=== PATIENT | female | born 1985 | race Caucasian/White ===

== ENCOUNTER 2018-04-29 10:51 | Emergency (ER) | payer OTHER, SELFPAY ==
--- NOTE | 2018-04-29 12:28 | EDPHYS ---
Physician Documentation [facility] Name: Mandy Boyd Age: 32 yrs Sex: Female : 1985 Arrival Date: 04/29/2018 Time: 10:53 Bed 16 Private MD: None, None ED Physician Jimy Valdez HPI: 04/29 14:00 This 32 yrs old Female presents to ER via Ambulatory with complaints of Flu snw Symptoms. 14:00 Onset: The symptoms/episode began/occurred suddenly, yesterday. Associated signs and snw symptoms: Pertinent positives: abdominal pain, sore throat. The patient has not experienced similar symptoms in the past. The patient has not recently seen a physician. 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 - Social history:: Smoking status: Patient/guardian denies using tobacco. - Ebola Screening: : Patient denies travel to an Ebola-affected area in the 21 days before illness onset. ROS: 13:58 Eyes: Negative for injury, pain, redness, and discharge, Neck: Negative for injury, snw pain, and swelling, Cardiovascular: Negative for chest pain, palpitations, and edema, Respiratory: Negative for shortness of breath, cough, wheezing, and pleuritic chest pain, Back: Negative for injury and pain, : Negative for injury, bleeding, discharge, and swelling, MS/Extremity: Negative for injury and deformity, Skin: Negative for injury, rash, and discoloration, Neuro: Negative for headache, weakness, numbness, tingling, and seizure. 13:58 Constitutional: Positive for body aches, malaise, poor PO intake. 13:58 ENT: Positive for sore throat. 13:58 Abdomen/GI: Positive for vomiting, x 1. Exam: 13:57 Constitutional: This is a well developed, well nourished patient who is awake, alert, snw and in no acute distress. Head/Face: Normocephalic, atraumatic. Eyes: Pupils equal round and reactive to light, extra-ocular motions intact. Lids and lashes normal. Conjunctiva and sclera are non-icteric and not injected. Cornea within normal limits. Periorbital areas with no swelling, redness, or edema. Neck: Trachea midline, no thyromegaly or masses palpated, and no cervical lymphadenopathy. Supple, full range of motion without nuchal rigidity, or vertebral point tenderness. No Meningismus. Chest/axilla: Normal chest wall appearance and motion. Nontender with no deformity. No lesions are appreciated. Cardiovascular: Regular rate and rhythm with a normal S1 and S2. No gallops, murmurs, or rubs. Normal PMI, no JVD. No pulse deficits. Respiratory: Lungs have equal breath sounds bilaterally, clear to auscultation and percussion. No rales, rhonchi or wheezes noted. No increased work of breathing, no retractions or nasal flaring. Abdomen/GI: Soft, non-tender, with normal bowel sounds. No distension or tympany. No guarding or rebound. No evidence of tenderness throughout. Back: No spinal tenderness. No costovertebral tenderness. Full range of motion. Skin: Warm, dry with normal turgor. Normal color with no rashes, no lesions, and no evidence of cellulitis. MS/ Extremity: Pulses equal, no cyanosis. Neurovascular intact. Full, normal range of motion. Neuro: Awake and alert, GCS 15, oriented to person, place, time, and situation. Cranial nerves II-XII grossly intact. Motor strength 5/5 in all extremities. Sensory grossly intact. Cerebellar exam normal. Normal gait. 13:57 ENT: External ear(s): are unremarkable, Ear canal(s): are normal, TM's: erythema, that is mild, that is moderate, on the left, Nose: is normal, Mouth: is normal, Posterior pharynx: is normal, Voice: is normal. Vital Signs: 11:33 BP 110 / 85; Pulse 63; Resp 18; Temp 98.4(O); Pulse Ox 98% on R/A; Weight 89.36 kg; aj1 Height 5 ft. 1 in. (154.94 cm); Pain 5/10; 11:33 Body Mass Index 37.22 (89.36 kg, 154.94 cm) aj1 MDM: 11:51 Patient medically screened. snw 13:59 Data reviewed: vital signs, nurses notes. Data interpreted: Pulse oximetry: on room air snw is 98 %. Interpretation: normal. Counseling: I had a detailed discussion with the patient and/or guardian regarding: the historical points, exam findings, and any diagnostic results supporting the discharge/admit diagnosis, the presence of at least one elevated blood pressure reading (>120/80) during this emergency department visit, lab results, the need for outpatient follow up, to return to the emergency department if symptoms worsen or persist or if there are any questions or concerns that arise at home. Special discussion: Based on the patient's Hx, exam, and Dx evaluation, there is no indication for emergent surgery or inpatient Tx. It is understood by the patient/guardian that if the Sx's persist or worsen they need to return immediately for re-evaluation. I have referred the patient to see his PCP for further evaluation of high blood pressure. Based on the history and exam findings, there is no indication for further emergent testing or inpatient evaluation. I discussed with the patient/guardian the need to see the primary care provider for further evaluation of the symptoms. 14:07 ED course: pt took 4-5 days of antibiotic she had at home (amoxil). snw Administered Medications: No medications were administered Disposition: 14:34 Co-signature as Attending Physician, Jimy Valdez MD. rn Disposition: 04/29/18 12:27 Discharged to Home. Impression: Bronchitis, not specified as acute or chronic. - Condition is Stable. - Discharge Instructions: Acute Bronchitis. - Prescriptions for Amoxicillin 500 mg Oral Capsule - take 1 capsule by ORAL route every 8 hours for 10 days; 30 tablet. Zyrtec 10 mg Oral Tablet - take 1 tablet by ORAL route once daily As needed; 20 tablet. - Medication Reconciliation Form, Thank You Letter, Antibiotic Education, Prescription Opioid Use form. - Follow up: Private Physician; When: 1 week; Reason: Recheck today's complaints, Continuance of care, Re-evaluation by your physician. Signatures: Pretty Thompson RN RN aj1 Meghann Braswell, EMAIL PRODUCTION CONSULTANT-C EMAIL PRODUCTION CONSULTANT-Csnw Jimy Valdez MD MD rn Smirch, Shelby, RN RN ss Corrections: (The following items were deleted from the chart) 12:39 12:27 04/29/2018 12:27 Discharged to Home. Impression: Bronchitis, not specified as ss acute or chronic. Condition is Stable. Discharge Instructions: Acute Bronchitis. Prescriptions for Amoxicillin 500 mg Oral Capsule - take 1 capsule by ORAL route every 8 hours for 10 days; 30 tablet, Zyrtec 10 mg Oral Tablet - take 1 tablet by ORAL route once daily As needed; 20 tablet. and Forms are Medication Reconciliation Form, Thank You Letter, Antibiotic Education, Prescription Opioid Use. Follow up: Private Physician; When: 1 week; Reason: Recheck today's complaints, Continuance of care, Re-evaluation by your physician. snw 14:12 13:58 Abdomen/GI: Positive for abdominal cramps, of the right lower quadrant and left snw lower quadrant, snw
--- NOTE | 2018-04-29 12:28 | ER ---
Nurse's Notes [facility] Name: Mandy Boyd Age: 32 yrs Sex: Female : 1985 Arrival Date: 04/29/2018 Time: 10:53 Bed 16 Private MD: None, None Diagnosis: Bronchitis, not specified as acute or chronic Presentation: 04/29 11:27 Presenting complaint: Patient states: "I threw up on my way in here. I've been sick for aj1 the past week. I have chest congestions and cough. I have some antibiotics for it, so mine is starting to clear up, but I cough a lot a night, and I might be .". Transition of care: patient was not received from another setting of care. Onset of symptoms was April 22, 2018. Risk Assessment: Do you want to hurt yourself or someone else? Patient reports no desire to harm self or others. Initial Sepsis Screen: Does the patient meet any 2 criteria? No. Patient's initial sepsis screen is negative. Does the patient have a suspected source of infection? No. Patient's initial sepsis screen is negative. Care prior to arrival: None. 11:27 Method Of Arrival: Ambulatory aj1 11:27 Acuity: ERIKA 4 aj1 Triage Assessment: 11:33 General: Appears in no apparent distress. comfortable, Behavior is calm, cooperative, aj1 appropriate for age. Pain: Complains of pain in left aspect of posterior pharynx and right aspect of posterior pharynx Pain currently is 5 out of 10 on a pain scale. 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 - Social history:: Smoking status: Patient/guardian denies using tobacco. - Ebola Screening: : Patient denies travel to an Ebola-affected area in the 21 days before illness onset. Screenin:40 Abuse screen: Denies threats or abuse. Nutritional screening: No deficits noted. rb1 Tuberculosis screening: No symptoms or risk factors identified. Fall Risk None identified. Assessment: 11:40 General: Appears in no apparent distress. comfortable, Behavior is calm, cooperative. rb1 Neuro: Level of Consciousness is awake, alert, obeys commands, Oriented to person, place, time, situation. Cardiovascular: Capillary refill < 3 seconds is brisk in bilateral fingers. Respiratory: Reports cough that is productive, Airway is patent Respiratory effort is even, unlabored, Respiratory pattern is regular, symmetrical. GI: Reports nausea, vomiting. : No signs and/or symptoms were reported regarding the genitourinary system. Derm: Skin is pink, warm \\T\\ dry. Musculoskeletal: Range of motion: intact in all extremities. Vital Signs: 11:33 BP 110 / 85; Pulse 63; Resp 18; Temp 98.4(O); Pulse Ox 98% on R/A; Weight 89.36 kg; aj1 Height 5 ft. 1 in. (154.94 cm); Pain 5/10; 11:33 Body Mass Index 37.22 (89.36 kg, 154.94 cm) aj1 ED Course: 10:53 Patient arrived in ED. sb2 10:54 None, None is Private Physician. sb2 11:04 Meghann Braswell FNP-C [facility]. snw 11:04 Jimy Valdez MD is Attending Physician. snw 11:30 Triage completed. aj1 11:33 Arm band placed on. aj1 11:40 Kymberly Gomez, RN is Primary Nurse. rb1 11:40 Patient has correct armband on for positive identification. Bed in low position. Call rb1 light in reach. Side rails up X2. Pulse ox on. NIBP on. 12:38 No provider procedures requiring assistance completed. Patient did not have IV access ss during this emergency room visit. Administered Medications: No medications were administered Outcome: 12:27 Discharge ordered by . snw 12:38 Discharged to home ambulatory, with family. ss 12:38 Condition: good 12:38 Discharge instructions given to patient, family, Instructed on discharge instructions, follow up and referral plans. medication usage, Demonstrated understanding of instructions, follow-up care, medications, Prescriptions given X 2. 12:39 Patient left the ED. Signatures: Pretty Thompson RN RN aj1 Meghann Braswell, [address] SQL DEVELOPER-C [address] SQL DEVELOPER-Csnw Skyla Olson RN RN ss Kymberly Gomez RN RN rb1 Judith Adhikari2
== END 2018-04-29 12:39 | disposition home or self-care (01) ==
LOC: ER 10:51
DX: J40 Bronchitis, not specified as acute or chronic (principal); R56.9 Unspecified convulsions; I10 Essential (primary) hypertension; J45.909 Unspecified asthma, uncomplicated
CPT/HCPCS: 99283

== ENCOUNTER 2018-05-24 14:38 | Emergency (ER) | payer SELFPAY ==
[2018-05-24] MEDS ORDERED: NA CHLORIDE 0.9% 1,000 ML ONE (15:04)
[2018-05-24] MEDS ORDERED: ONDANSETRON 4 MG/2 ML VIAL ONE (15:04)
[2018-05-24] MEDS ORDERED: LORazepam 2 MG/ML VIAL ONE (15:06)
[2018-05-24 15:59] LABS: Absolute Lymphocytes (CBC) 1.5 K/uL (0.7-4.9); Absolute Monocytes 0.5 K/uL (0.1-1.3); Absolute Neutrophil 5.9 K/uL (1.8-8.0); Basophils % 0.3 % (0-1.3); Eosinophils % 1.5 % (0-4.4); Hematocrit 35.6 % (36.0-45.0); Lymphocytes % 18.2 % (15.3-44.8); MCH 28.5 pg (27.0-35.0); MCV 85.4 fL (80-100); MPV 9.5 fL (7.6-11.3); Monocytes % 5.9 % (3.3-12.3); RBC Red Blood Cell Count 4.18 M/uL (3.86-4.86)
[2018-05-24 16:05] LABS: Urine Blood TRACE (NEG); Urine Glucose NEGATIVE (NEG); Urine Protein 3+ (NEG); Urine Specific Gravity >1.030 (1.005-1.030)
[2018-05-24 16:12] LABS: Albumin 3.4 g/dL (3.4-5.0); Bilirubin Total 0.2 mg/dL (0.2-1.0); Potassium 3.8 mmol/L (3.5-5.1); Protein, Total 7.2 g/dL (6.4-8.2)
--- NOTE | 2018-05-24 16:52 | ER ---
Nurse's Notes [facility] Name: Mandy Boyd Age: 32 yrs Sex: Female : 1985 Arrival Date: 05/24/2018 Time: 14:43 Bed 24 Private MD: Diagnosis: Epilepsy and recurrent seizures;Patient's noncompliance with medical treatment and regimen Presentation: 05/24 14:44 Presenting complaint: EMS states: seizure activity lasted about 30 seconds at work with tl3 a postictal phase of about 5-7 minutes. Transition of care: patient was not received from another setting of care. Onset of symptoms was May 24, 2018. Risk Assessment: Do you want to hurt yourself or someone else? Patient reports no desire to harm self or others. Initial Sepsis Screen: Does the patient meet any 2 criteria? No. Patient's initial sepsis screen is negative. Does the patient have a suspected source of infection? No. Patient's initial sepsis screen is negative. Care prior to arrival: None. 14:44 Method Of Arrival: EMS: [facility] tl3 14:44 Acuity: ERIKA 3 tl3 Triage Assessment: 14:47 General: Appears distressed, uncomfortable, well groomed, well developed, well tl3 nourished, Behavior is cooperative, appropriate for age, anxious. Pain: Denies pain. EENT: No signs and/or symptoms were reported regarding the EENT system. Neuro: Level of Consciousness is awake, alert, obeys commands, Oriented to person, place, time, situation, Appropriate for age. Cardiovascular: Patient's skin is warm and dry. Respiratory: Airway is patent Respiratory effort is even, unlabored, Respiratory pattern is regular, symmetrical. GI: No signs and/or symptoms were reported involving the gastrointestinal system. : No signs and/or symptoms were reported regarding the genitourinary system. Derm: No signs and/or symptoms reported regarding the dermatologic system. Musculoskeletal: No signs and/or symptoms reported regarding the musculoskeletal system. 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 - Social history:: Smoking status: unknown. - Ebola Screening: : No symptoms or risks identified at this time. - Family history:: not pertinent. - Hospitalizations: : No recent hospitalization is reported. Screenin:52 Abuse screen: Denies threats or abuse. Nutritional screening: No deficits noted. tl3 Tuberculosis screening: No symptoms or risk factors identified. Fall Risk None identified. Assessment: 14:52 Reassessment: No changes from previously documented assessment. Geovany Paredes at bedside for tl3 assessment. 16:10 Reassessment: Patient appears in no apparent distress at this time. No changes from tl3 previously documented assessment. Patient and/or family updated on plan of care and expected duration. Pain level reassessed. Patient is alert, oriented x 3, equal unlabored respirations, skin warm/dry/pink. 17:13 Reassessment: Patient appears in no apparent distress at this time. No changes from tl3 previously documented assessment. Patient and/or family updated on plan of care and expected duration. Pain level reassessed. Patient is alert, oriented x 3, equal unlabored respirations, skin warm/dry/pink. Vital Signs: 14:47 BP 155 / 110; Pulse 69; Resp 18; Temp 98.7; Pulse Ox 100% ; tl3 16:10 BP 149 / 100; Pulse 67; Resp 18; Pulse Ox 100% ; tl3 16:44 BP 157 / 100 RA Supine (auto/lg); Pulse 61; Resp 23 S; Pulse Ox 99% on R/A; jp3 17:13 BP 152 / 98; Pulse 70; Resp 18; Pulse Ox 98% ; tl3 Chili Coma Score: 14:56 Eye Response: spontaneous(4). Verbal Response: oriented(5). Motor Response: obeys kav commands(6). Total: 15. 17:16 Eye Response: spontaneous(4). Verbal Response: oriented(5). Motor Response: obeys tl3 commands(6). Total: 15. NIH Stroke Scale Scores: 14:56 NIHSS Score: 0 ka ED Course: 14:43 Patient arrived in ED. tl3 14:44 Colette Paredes FNP is [facility]. kav 14:44 Jimy Valdez MD is Attending Physician. kav 14:45 Triage completed. tl3 14:52 Arm band placed on right wrist. tl3 14:52 Patient has correct armband on for positive identification. Bed in low position. Call tl3 light in reach. Side rails up X 1. Pulse ox on. NIBP on. 14:52 No provider procedures requiring assistance completed. tl3 14:57 Marie Alfaro, RN is Primary Nurse. tl3 15:00 Seizure precautions initiated. tl3 15:35 Inserted saline lock: 20 gauge in left antecubital area, using aseptic technique. Blood tl3 collected. 16:12 Tegretol Level Sent. tl3 16:45 Diet: Patient given ice chips. jp3 17:13 IV discontinued, intact, bleeding controlled, No redness/swelling at site. Pressure tl3 dressing applied. Administered Medications: 15:35 Drug: NS 0.9% 1000 ml Route: IV; Rate: 1 bolus; Site: left antecubital; Delivery: tl3 Primary tubing; 17:14 Follow up: IV Status: Completed infusion; IV Intake: 1000ml tl3 15:35 Drug: Zofran 4 mg Route: IVP; Infused Over: 2 mins; Site: left antecubital; tl3 17:14 Follow up: Response: No adverse reaction tl3 15:35 Drug: Ativan 0.5 mg Route: IVP; Infused Over: 3 mins; Site: left antecubital; tl3 17:15 Follow up: Response: Anxiety decreased tl3 Intake: 17:14 IV: 1000ml; Total: 1000ml. tl3 Outcome: 16:52 Discharge ordered by . kav 17:13 Discharged to home ambulatory. tl3 17:13 Condition: good 17:13 Discharge instructions given to patient, Instructed on discharge instructions, follow up and referral plans. medication usage, Demonstrated understanding of instructions, follow-up care, medications, Prescriptions given X 1. 17:17 Patient left the ED. tl3 NIH Stroke Scale - NIH Stroke Score Date: 05/24/2018 Time: 14:56 Total Score = 0 1a. Level of Consciousness (LOC) - 0(Alert) 1b. Level of Consciousness (LOC) (Year \T\ Age) - 0(Both) 1c. LOC Commands (Open \T\ Closes Eyes/Client Support Representative) - 0(Both) 2. Best Gaze (Lateral Gaze Paresis) - 0(Normal) 3. Visual Field Loss - 0(No visual loss) 4. Facial Palsy - 0(Normal) 5a. Left Arm: Motor (10-second hold) - 0(No drift) 5b. Right Arm: Motor (10-second hold) - 0(No drift) 6a. Left Leg: Motor (5-second hold - always test supine) - 0(No drift) 6b. Right Leg: Motor (5-second hold - always test supine) - 0(No drift) 7. Limb Ataxia (finger/nose \T\ heel/jones - test with eyes open) - 0(Absent) 8. Sensory Loss (pinprick arms/legs/face) - 0(Normal) 9. Best Language: Aphasia (description/naming/reading) - 0(No aphasia) 10. Dysarthria (speech clarity - read or repeat words) - 0(Normal) 11. Extinction and Inattention (visual/tactile/auditory/spatial/personal) - 0(No abnormality) Initials: yasmeen Signatures: Colette Paredes, CHARACTER ACTOR CHARACTER ACTOR Marie Fan, RN RN tl3 Carlos Grimm jp3
--- NOTE | 2018-05-24 16:53 | EDPHYS ---
Physician Documentation [facility] Name: Mandy Boyd Age: 32 yrs Sex: Female : 1985 Arrival Date: 05/24/2018 Time: 14:43 Bed 24 Private MD: ED Physician Jimy Valdez HPI: 05/24 14:54 This 32 yrs old Female presents to ER via EMS with complaints of Seizure. kav 14:54 The patient presents after having a single isolated seizure, that lasted an unknown kav period of time. Character of seizure(s): Loss of consciousness: the patient did not lose consciousness, Motor activity: generalized, Incontinence: none, Apnea: the patient did not experience apnea, Circulation: the patient did not experience evidence of pulse disturbance, Eye movements: the eyes did not move. Seizure onset: just prior to arrival. Context: occurred at work. Seizure Hx: Seizure medications: Lamictal, tegretol, topamax. Associated injury: The patient did not suffer any apparent associated injury. EMS care: supplemental oxygen. Current symptoms: Anxiety over having a seizure. The patient has experienced similar episodes in the past, multiple times. The patient has not recently seen a physician. Patient reports that she has not been taking her Topamax for the past week as she has no insurance to pay for the prescription.. 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 - Social history:: Smoking status: unknown. - Ebola Screening: : No symptoms or risks identified at this time. - Family history:: not pertinent. - Hospitalizations: : No recent hospitalization is reported. ROS: 14:56 Constitutional: Negative for fever, chills, and weight loss, Eyes: Negative for injury, kav pain, redness, and discharge, ENT: Negative for injury, pain, and discharge, Neck: Negative for injury, pain, and swelling, Cardiovascular: Negative for chest pain, palpitations, and edema, Respiratory: Negative for shortness of breath, cough, wheezing, and pleuritic chest pain, Abdomen/GI: Negative for abdominal pain, nausea, vomiting, diarrhea, and constipation, Back: Negative for injury and pain, : Negative for injury, bleeding, discharge, and swelling, MS/Extremity: Negative for injury and deformity, Skin: Negative for injury, rash, and discoloration, Psych: Negative for depression, anxiety, suicide ideation, homicidal ideation, and hallucinations, Allergy/Immunology: Negative for hives, rash, and allergies, Endocrine: Negative for neck swelling, polydipsia, polyuria, polyphagia, and marked weight changes, Hematologic/Lymphatic: Negative for swollen nodes, abnormal bleeding, and unusual bruising. 14:56 Neuro: Positive for seizure activity, Negative for altered mental status, headache, loss of consciousness, speech changes, syncope, tingling, tinnitus, tremor, visual changes, weakness. Exam: 14:56 Constitutional: This is a well developed, well nourished patient who is awake, alert, kav and in no acute distress. Head/Face: Normocephalic, atraumatic. Eyes: Pupils equal round and reactive to light, extra-ocular motions intact. Lids and lashes normal. Conjunctiva and sclera are non-icteric and not injected. Cornea within normal limits. Periorbital areas with no swelling, redness, or edema. ENT: Nares patent. No nasal discharge, no septal abnormalities noted. Tympanic membranes are normal and external auditory canals are clear. Oropharynx with no redness, swelling, or masses, exudates, or evidence of obstruction, uvula midline. Mucous membranes moist. Neck: Trachea midline, no thyromegaly or masses palpated, and no cervical lymphadenopathy. Supple, full range of motion without nuchal rigidity, or vertebral point tenderness. No Meningismus. Chest/axilla: Normal chest wall appearance and motion. Nontender with no deformity. No lesions are appreciated. Cardiovascular: Regular rate and rhythm with a normal S1 and S2. No gallops, murmurs, or rubs. Normal PMI, no JVD. No pulse deficits. Respiratory: Lungs have equal breath sounds bilaterally, clear to auscultation and percussion. No rales, rhonchi or wheezes noted. No increased work of breathing, no retractions or nasal flaring. Abdomen/GI: Soft, non-tender, with normal bowel sounds. No distension or tympany. No guarding or rebound. No evidence of tenderness throughout. Back: No spinal tenderness. No costovertebral tenderness. Full range of motion. Skin: Warm, dry with normal turgor. Normal color with no rashes, no lesions, and no evidence of cellulitis. MS/ Extremity: Pulses equal, no cyanosis. Neurovascular intact. Full, normal range of motion. 14:56 Neuro: Orientation: is normal, appropriate for stated age, Mentation: is normal, appropriate for stated age, no acute changes, per EMS, Memory: is normal, appropriate for stated age, Cranial nerves: grossly normal, is grossly normal based on the patient's age, no acute changes, CN I not tested, CN II- XII are normal as tested, visual torres are intact. Funduscopic exam reveals no obvious abnormalities, discs that are sharp, extraocular movements are intact, Facial palsy and sensory deficits are absent. no gross hearing deficit,. Nystagmus is absent. Speech is clear and appropriate. Gag reflex present. Tongue strength is normal, Cerebellar function: is grossly normal, is grossly normal based on the patient's age, no acute changes, Romberg testing is negative, normal finger to nose testing, heel to jones testing is normal, able to perform alternating rapid hand movements, Motor: is normal, Sensation: is normal, no obvious gross deficits, no acute changes, Gait: is steady, at a normal pace, Deep tendon reflexes are normal, Babinski testing is normal, seizure activity, is not displayed by the patient, Abnormal movements: there are no abnormal movements. 14:56 Psych: Behavior/mood is anxious, crying. Affect is animated, Oriented to person, place, time, Patient has no thoughts/intents to harm self or others. Judgement / Insight is normal. Memory is normal. Delusions/hallucinations are not present. Vital Signs: 14:47 BP 155 / 110; Pulse 69; Resp 18; Temp 98.7; Pulse Ox 100% ; tl3 16:10 BP 149 / 100; Pulse 67; Resp 18; Pulse Ox 100% ; tl3 16:44 BP 157 / 100 RA Supine (auto/lg); Pulse 61; Resp 23 S; Pulse Ox 99% on R/A; jp3 17:13 BP 152 / 98; Pulse 70; Resp 18; Pulse Ox 98% ; tl3 NIH Stroke Scale Scores: 14:56 NIHSS Score: 0 kav [place] Coma Score: 14:56 Eye Response: spontaneous(4). Verbal Response: oriented(5). Motor Response: obeys kav commands(6). Total: 15. 17:16 Eye Response: spontaneous(4). Verbal Response: oriented(5). Motor Response: obeys tl3 commands(6). Total: 15. MDM: 14:44 Medical screening is not applicable. [facility] 05/24 14:53 Order name: CBC with Diff; Complete Time: 16:42 v 05/24 14:53 Order name: CMP; Complete Time: 16:42 kav 05/24 14:53 Order name: Tegretol Level [facility] 05/24 14:54 Order name: Carbamazepine (Tegretol) Level; Complete Time: 16:42 EDMS 05/24 16:01 Order name: Urine Dipstick--Ancillary (enter results); Complete Time: 16:42 bd 05/24 16:01 Order name: Urine --Ancillary (enter results); Complete Time: 16:42 bd 05/24 14:53 Order name: Urine Dipstick-Ancillary (obtain specimen); Complete Time: 16:12 kav 05/24 14:53 Order name: Urine Test (obtain specimen); Complete Time: 16:12 v 05/24 14:53 Order name: Cardiac monitoring; Complete Time: 16:12 kav Administered Medications: 15:35 Drug: NS 0.9% 1000 ml Route: IV; Rate: 1 bolus; Site: left antecubital; Delivery: tl3 Primary tubing; 17:14 Follow up: IV Status: Completed infusion; IV Intake: 1000ml tl3 15:35 Drug: Zofran 4 mg Route: IVP; Infused Over: 2 mins; Site: left antecubital; tl3 17:14 Follow up: Response: No adverse reaction tl3 15:35 Drug: Ativan 0.5 mg Route: IVP; Infused Over: 3 mins; Site: left antecubital; tl3 17:15 Follow up: Response: Anxiety decreased tl3 Disposition: 18:03 Co-signature as Attending Physician, Jimy Valdez MD. rn Disposition: 05/24/18 16:52 Discharged to Home. Impression: Epilepsy and recurrent seizures, Patient's noncompliance with medical treatment and regimen. - Condition is Stable. - Discharge Instructions: Form - Return To Work. - Prescriptions for Topamax 100 mg Oral tablet - take 1 tablet by ORAL route 2 times per day; 60 tablet. - Medication Reconciliation Form, Thank You Letter form. - Follow up: Private Physician; When: 2 - 3 days; Reason: Recheck today's complaints, Continuance of care, Re-evaluation by your physician. - Problem is chronic. - Symptoms have improved. NIH Stroke Scale - NIH Stroke Score Date: 05/24/2018 Time: 14:56 Total Score = 0 1a. Level of Consciousness (LOC) - 0(Alert) 1b. Level of Consciousness (LOC) (Year \T\ Age) - 0(Both) 1c. LOC Commands (Open \T\ Closes Eyes/President [employer] Ceo) - 0(Both) 2. Best Gaze (Lateral Gaze Paresis) - 0(Normal) 3. Visual Field Loss - 0(No visual loss) 4. Facial Palsy - 0(Normal) 5a. Left Arm: Motor (10-second hold) - 0(No drift) 5b. Right Arm: Motor (10-second hold) - 0(No drift) 6a. Left Leg: Motor (5-second hold - always test supine) - 0(No drift) 6b. Right Leg: Motor (5-second hold - always test supine) - 0(No drift) 7. Limb Ataxia (finger/nose \T\ heel/jones - test with eyes open) - 0(Absent) 8. Sensory Loss (pinprick arms/legs/face) - 0(Normal) 9. Best Language: Aphasia (description/naming/reading) - 0(No aphasia) 10. Dysarthria (speech clarity - read or repeat words) - 0(Normal) 11. Extinction and Inattention (visual/tactile/auditory/spatial/personal) - 0(No abnormality) Initials: yasmeen Signatures: Dispatcher [employer] Colette Hines, DIP TANKER DIP TANKERJimy Delacruz MD MD rn Lowrey, Tammy, RN RN tl3 Corrections: (The following items were deleted from the chart) 17:17 16:52 05/24/2018 16:52 Discharged to Home. Impression: Epilepsy and recurrent tl3 seizures; Patient's noncompliance with medical treatment and regimen. Condition is Stable. Forms are Medication Reconciliation Form, Thank You Letter, Antibiotic Education, Prescription Opioid Use. Follow up: Private Physician; When: 2 - 3 days; Reason: Recheck today's complaints, Continuance of care, Re-evaluation by your physician. Problem is chronic. Symptoms have improved. kav
== END 2018-05-24 17:17 | disposition home or self-care (01) ==
LOC: ER 14:38
DX: G40.909 Epilepsy, unspecified, not intractable, without status epilepticus (principal); J45.909 Unspecified asthma, uncomplicated; I10 Essential (primary) hypertension; Z91.14 Patient's other noncompliance with medication regimen
CPT/HCPCS: 36415; 80053; 80156; 81003; 81025; 85025; 96361; 96374; 96375; 99284; J2405; J7030

== ENCOUNTER 2018-07-26 12:59 | Emergency (ER) | payer SELFPAY ==
[2018-07-26 15:57] LABS: Absolute Lymphocytes (CBC) 2.1 K/uL (0.7-4.9); Absolute Monocytes 0.6 K/uL (0.1-1.3); Absolute Neutrophil 5.9 K/uL (1.8-8.0); Basophils % 0.3 % (0-1.3); Eosinophils % 1.1 % (0-4.4); Hematocrit 39.3 % (36.0-45.0); Lymphocytes % 24.5 % (15.3-44.8); MCH 28.2 pg (27.0-35.0); MCV 85.7 fL (80-100); MPV 9.3 fL (7.6-11.3); Monocytes % 6.4 % (3.3-12.3); RBC Red Blood Cell Count 4.58 M/uL (3.86-4.86)
[2018-07-26 16:14] LABS: ALT/SGPT 17 U/L (12-78); AST/SGOT 9 U/L (15-37); Albumin 3.6 g/dL (3.4-5.0); Alkaline Phosphatase 102 U/L (45-117); BUN Blood Urea Nitrogen 14 mg/dL (7-18); Bicarbonate 25 mmol/L (21-32); Bilirubin Direct < 0.1 mg/dL (0-0.2); Bilirubin Total 0.2 mg/dL (0.2-1.0); Glucose Level 86 mg/dL (74-106); Lipase 297 U/L (73-393); Potassium 4.1 mmol/L (3.5-5.1); Protein, Total 7.7 g/dL (6.4-8.2); Sodium Level 140 mmol/L (136-145)
[2018-07-26 18:23] LABS: Urine Bacteria 20-50 /HPF (<20); Urine Culture Reflex Order REFLEXED; Urine Mucus 2+ /HPF (NONE SEEN); Urine RBC <5 /HPF (NONE SEEN)
[2018-07-26 18:23] LABS: Urine Blood NEGATIVE (NEG); Urine Glucose NEGATIVE (NEG); Urine Protein TRACE (NEG); Urine Specific Gravity 1.025 (1.005-1.030)
--- NOTE | 2018-07-26 18:42 | RAD REPORT ---
EXAM DESCRIPTION: CT - Abdomen Pelvis W Contrast - 07/26/2018 6:20 pm CLINICAL HISTORY: Abdominal pain. Generalized abdominal pain for 1 week. Nausea COMPARISON: None. TECHNIQUE: Computed axial tomography of the abdomen and pelvis was obtained. 100 cc Isovue-300 is ad ministered intravenously. Oral contrast was given. All CT scans are performed using dose optimization technique as appropriate and may include automated exposure control or mA/KV adjustment according to patient size. FINDINGS: The liver, spleen, pancreas, adrenals and kidneys appear unremarkable. The appendix is normal caliber. There is no evidence of diverticulitis An adnexal mass is not seen The wall of the terminal ileum appears mildly thickened. An abnormal appendix is not seen IMPRESSION: The wall of the terminal ileum appears mildly thickened this may indicate inflammation
--- NOTE | 2018-07-26 18:42 | RAD REPORT ---
EXAM DESCRIPTION: US - Abdomen Exam Limited - 07/26/2018 3:49 pm CLINICAL HISTORY: Abdominal pain. COMPARISON: None. FINDINGS: A stone is present the gallbladder neck. The gallbladder wall is not thickened. . The biliary tree is normal caliber. IMPRESSION: Cholelithiasis without evidence of cholecystitis
--- NOTE | 2018-07-26 18:44 | EDPHYS ---
Physician Documentation [facility] Name: Mandy Boyd Age: 32 yrs Sex: Female : 1985 Arrival Date: 07/26/2018 Time: 13:00 Bed 19 Private MD: None, None ED Physician Jimy Valdez HPI: 07/26 15:29 This 32 yrs old Female presents to ER via Ambulatory with complaints of rn Abdominal Pain, Dizziness, Nausea. 15:29 The patient presents with abdominal pain in the epigastric area. Onset: The rn symptoms/episode began/occurred 1 week(s) ago. The symptoms do not radiate. Associated signs and symptoms: Pertinent positives: anorexia, nausea, Pertinent negatives: dysuria, fever, shortness of breath, vaginal discharge, vomiting, vomiting blood. The symptoms are described as achy, burning. Modifying factors: The symptoms are alleviated by nothing, the symptoms are aggravated by touching the area. Severity of pain: At its worst the pain was moderate in the emergency department the pain has improved. The patient has experienced similar episodes in the past. Reports upper abd pain for 1 week, intermittent, burning, started like acid reflux, now moved more toward center abdomen, not sure if she is , no fever. . 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 - Social history:: Smoking status: Patient/guardian denies using tobacco. - Ebola Screening: : Patient denies travel to an Ebola-affected area in the 21 days before illness onset. - Family history:: not pertinent. - Hospitalizations: : No recent hospitalization is reported. ROS: 15:29 Constitutional: Negative for fever, chills, and weight loss, Eyes: Negative for injury, rn pain, redness, and discharge, Neck: Negative for injury, pain, and swelling, Cardiovascular: Negative for chest pain, palpitations, and edema, Respiratory: Negative for shortness of breath, cough, wheezing, and pleuritic chest pain, Abdomen/GI: + abd pain/nausea/anorexia. Back: Negative for injury and pain, MS/Extremity: Negative for injury and deformity, Skin: Negative for injury, rash, and discoloration, Neuro: Negative for headache, weakness, numbness, tingling, and seizure. Exam: 15:29 Constitutional: This is a well developed, well nourished patient who is awake, alert, rn and in no acute distress. Head/Face: Normocephalic, atraumatic. Eyes: Pupils equal round and reactive to light, extra-ocular motions intact. Lids and lashes normal. Conjunctiva and sclera are non-icteric and not injected. Cornea within normal limits. Periorbital areas with no swelling, redness, or edema. Neck: Trachea midline, no thyromegaly or masses palpated, and no cervical lymphadenopathy. Supple, full range of motion without nuchal rigidity, or vertebral point tenderness. No Meningismus. Cardiovascular: Regular rate and rhythm with a normal S1 and S2. No gallops, murmurs, or rubs. Normal PMI, no JVD. No pulse deficits. Respiratory: Lungs have equal breath sounds bilaterally, clear to auscultation and percussion. No rales, rhonchi or wheezes noted. No increased work of breathing, no retractions or nasal flaring. Abdomen/GI: soft, mild epigastric tenderness, no rebound, neg beltran Skin: Warm, dry with normal turgor. Normal color with no rashes, no lesions, and no evidence of cellulitis. MS/ Extremity: Pulses equal, no cyanosis. Neurovascular intact. Full, normal range of motion. Equal circumference. Neuro: Awake and alert, GCS 15, oriented to person, place, time, and situation. Cranial nerves II-XII grossly intact. Motor strength 5/5 in all extremities. Sensory grossly intact. Vital Signs: 13:18 BP 126 / 91; Pulse 66; Resp 17; Temp 97.8(TE); Pulse Ox 100% on R/A; Weight 89.36 kg tw2 (R); Height 5 ft. 1 in. (154.94 cm) (R); Pain 9/10; 16:15 BP 115 / 68; Pulse 68; Resp 18; Pulse Ox 100% on R/A; aj1 17:22 BP 108 / 71; Pulse 71; Resp 16; Pulse Ox 100% on R/A; aj1 18:34 BP 110 / 76; Pulse 65; Resp 16; Pulse Ox 97% on R/A; aj1 13:18 Body Mass Index 37.22 (89.36 kg, 154.94 cm) tw2 MDM: 14:55 Patient medically screened. rn 18:43 Differential diagnosis: diverticulitis, gastritis, gastroesophageal reflux disease, rn non-specific abd pain, pancreatitis, Peptic Ulcer Disease, Ureterolithiasis, urinary tract infection. Data reviewed: vital signs, nurses notes, lab test result(s), radiologic studies, CT scan, ultrasound, and as a result, I will discharge patient. Counseling: I had a detailed discussion with the patient and/or guardian regarding: the historical points, exam findings, and any diagnostic results supporting the discharge/admit diagnosis, lab results, radiology results, the need for outpatient follow up, to return to the emergency department if symptoms worsen or persist or if there are any questions or concerns that arise at home. Special discussion: Based on the patient's Hx, exam, and Dx evaluation, there is no indication for emergent surgery or inpatient Tx. It is understood by the patient/guardian that if the Sx's persist or worsen they need to return immediately for re-evaluation. I discussed with the patient/guardian in detail that at this point there is no indication for admission to the hospital. It is understood, however, that if the symptoms persist or worsen the patient needs to return immediately for re-evaluation. 07/26 15:11 Order name: Basic Metabolic Panel; Complete Time: 16:39 rn 07/26 15:11 Order name: CBC with Diff; Complete Time: 16:39 rn 07/26 15:11 Order name: Creatinine for Radiology; Complete Time: 16:39 rn 07/26 15:11 Order name: Hepatic Function; Complete Time: 16:39 rn 07/26 15:11 Order name: Lipase; Complete Time: 16:39 rn 07/26 15:11 Order name: CT Abd/Pelvis - W/Contrast; Complete Time: 18:42 rn 07/26 15:11 Order name: US Abdomen Limited; Complete Time: 18:46 rn 07/26 18:03 Order name: Urine Microscopic Only; Complete Time: 18:33 hb 07/26 18:07 Order name: Urine Dipstick--Ancillary (enter results) [facility] 07/26 18:07 Order name: Urine --Ancillary (enter results) [facility] 07/26 18:08 Order name: Urine Dipstick-Ancillary; Complete Time: 18:33 [facility] 07/26 18:08 Order name: Urine --Ancillary; Complete Time: 18:33 [facility] 07/26 18:25 Order name: Urine Culture [facility] 07/26 15:11 Order name: IV Saline Lock; Complete Time: 15:39 rn 07/26 15:11 Order name: Labs collected and sent; Complete Time: 15:39 rn 07/26 15:11 Order name: Urine Dipstick-Ancillary (obtain specimen); Complete Time: 15:39 rn Administered Medications: 19:01 Drug: Cipro 500 mg Route: PO; aj1 19:23 Follow up: Response: Medication administered at discharge. lp1 19:01 Drug: Flagyl 500 mg Route: PO; aj1 19:24 Follow up: Response: Medication administered at discharge. lp1 Disposition: 07/26/18 18:44 Discharged to Home. Impression: Unspecified abdominal pain, Enteritis, Gastritis, unspecified. - Condition is Stable. - Discharge Instructions: Abdominal Pain, Adult, Gastritis, Adult. - Prescriptions for Zofran ODT 4 mg Oral tablet,disintegrating - place 1 tablet by TRANSLINGUAL route every 8-10 hours As needed; 20 tablet. Cipro 500 mg Oral Tablet - take 1 tablet by ORAL route every 12 hours for 10 days; 20 tablet. Flagyl 500 mg Oral Tablet - take 1 tablet by ORAL route every 8 hours for 10 days; 30 tablet. Tylenol- Codeine #3 300-30 mg Oral Tablet - take 1 tablet by ORAL route every 6 hours As needed; 20 tablet. - Family Work Release, Medication Reconciliation Form, Thank You Letter, Antibiotic Education, Prescription Opioid Use form. - Follow up: Jason Miller MD; When: As needed; Reason: Recheck today's complaints, Re-evaluation by your physician. - Problem is new. - Symptoms have improved. Signatures: Dispatcher [employer] EDPretty Monte RN RN aj1 Jimy Valdez MD MD rn Pena, Laura, RN RN lp1 Destiny Boyd RN RN tw2 Corrections: (The following items were deleted from the chart) 19:24 18:44 07/26/2018 18:44 Discharged to Home. Impression: Unspecified abdominal pain; lp1 Enteritis; Gastritis, unspecified. Condition is Stable. Forms are Medication Reconciliation Form, Thank You Letter, Antibiotic Education, Prescription Opioid Use. Follow up: Jason Miller; When: As needed; Reason: Recheck today's complaints, Re-evaluation by your physician. Problem is new. Symptoms have improved. rn
--- NOTE | 2018-07-26 18:44 | ER ---
Nurse's Notes [facility] Name: Mandy Boyd Age: 32 yrs Sex: Female : 1985 Arrival Date: 07/26/2018 Time: 13:00 Bed 19 Private MD: None, None Diagnosis: Unspecified abdominal pain;Enteritis;Gastritis, unspecified Presentation: 07/26 13:17 Presenting complaint: Patient states: abdominal pain that started about a week, +N, no tw2 v/d, fever off and on. Transition of care: patient was not received from another setting of care. Onset of symptoms was July 26, 2018. Risk Assessment: Do you want to hurt yourself or someone else? Patient reports no desire to harm self or others. Initial Sepsis Screen: Does the patient meet any 2 criteria? No. Patient's initial sepsis screen is negative. Does the patient have a suspected source of infection? No. Patient's initial sepsis screen is negative. Care prior to arrival: None. 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 - Social history:: Smoking status: Patient/guardian denies using tobacco. - Ebola Screening: : Patient denies travel to an Ebola-affected area in the 21 days before illness onset. - Family history:: not pertinent. - Hospitalizations: : No recent hospitalization is reported. Screenin:11 Abuse screen: Denies threats or abuse. Denies injuries from another. Nutritional aj1 screening: No deficits noted. Tuberculosis screening: No symptoms or risk factors identified. 19:23 Fall Risk None identified. lp1 Assessment: 15:11 General: Appears in no apparent distress. uncomfortable. Pain: Complains of pain in aj1 right upper quadrant and left upper quadrant. Neuro: Level of Consciousness is awake, alert, obeys commands. Cardiovascular: Patient's skin is warm and dry. Respiratory: Airway is patent Respiratory effort is even, unlabored, Respiratory pattern is regular, symmetrical. GI: Abdomen is flat, non-distended, Bowel sounds present X 4 quads. Abd is soft X 4 quads Abdomen is tender to palpation in right upper quadrant and left upper quadrant Reports upper abdominal pain, diarrhea, nausea, Patient currently denies vomiting. : No signs and/or symptoms were reported regarding the genitourinary system. EENT: No signs and/or symptoms were reported regarding the EENT system. Derm: No signs and/or symptoms reported regarding the dermatologic system. Skin is pink, warm \T\ dry. normal. Musculoskeletal: No signs and/or symptoms reported regarding the musculoskeletal system. Circulation, motion, and sensation intact. 16:15 Reassessment: Patient appears in no apparent distress at this time. No changes from aj1 previously documented assessment. Patient and/or family updated on plan of care and expected duration. Pain level reassessed. Patient is alert, oriented x 3, equal unlabored respirations, skin warm/dry/pink. 17:18 Reassessment: Patient and/or family updated on plan of care and expected duration. Pain aj1 level reassessed. General: Appears in no apparent distress. uncomfortable. Pain: Complains of pain in abdomen. Neuro: Level of Consciousness is awake, alert, obeys commands. Cardiovascular: Patient's skin is warm and dry. Respiratory: Airway is patent Respiratory effort is even, unlabored, Respiratory pattern is regular, symmetrical. 18:34 Reassessment: Patient appears in no apparent distress at this time. No changes from aj1 previously documented assessment. Patient and/or family updated on plan of care and expected duration. Pain level reassessed. Patient is alert, oriented x 3, equal unlabored respirations, skin warm/dry/pink. Vital Signs: 13:18 BP 126 / 91; Pulse 66; Resp 17; Temp 97.8(TE); Pulse Ox 100% on R/A; Weight 89.36 kg tw2 (R); Height 5 ft. 1 in. (154.94 cm) (R); Pain 9/10; 16:15 BP 115 / 68; Pulse 68; Resp 18; Pulse Ox 100% on R/A; aj1 17:22 BP 108 / 71; Pulse 71; Resp 16; Pulse Ox 100% on R/A; aj1 18:34 BP 110 / 76; Pulse 65; Resp 16; Pulse Ox 97% on R/A; aj1 13:18 Body Mass Index 37.22 (89.36 kg, 154.94 cm) tw2 ED Course: 13:00 Patient arrived in ED. sb2 13:01 None, None is Private Physician. sb2 13:18 Triage completed. tw2 13:19 Arm band placed on. tw2 14:55 Jimy Valdez MD is Attending Physician. rn 15:11 Pretty Thompson, ZAYDA is Primary Nurse. aj1 15:11 Patient has correct armband on for positive identification. Bed in low position. Call aj1 light in reach. Side rails up X 1. 15:11 No provider procedures requiring assistance completed. Inserted saline lock: 20 gauge aj1 in right antecubital area, using aseptic technique. Blood collected. 15:50 US Abdomen Limited In Process Unspecified. EDMS 17:21 Radiology exam delayed due to test not completed at this time. nj 18:[address] nj 18:20 CT completed. Patient tolerated procedure well. Patient moved back from CT. jj2 18:20 CT Abd/Pelvis - W/Contrast In Process Unspecified. EDMS 18:44 Jason Miller MD is Referral Physician. rn 19:24 IV discontinued, No redness/swelling at site. Pressure dressing applied. lp1 Administered Medications: 19:01 Drug: Cipro 500 mg Route: PO; aj1 19:23 Follow up: Response: Medication administered at discharge. lp1 19:01 Drug: Flagyl 500 mg Route: PO; aj1 19:24 Follow up: Response: Medication administered at discharge. lp1 Outcome: 18:44 Discharge ordered by . rn 19:23 Discharged to home ambulatory, with family. lp1 19:23 Condition: good 19:23 Discharge instructions given to patient, Instructed on discharge instructions, follow up and referral plans. medication usage, Demonstrated understanding of instructions, follow-up care, medications, Prescriptions given X 4. 19:24 Patient left the ED. lp1 Signatures: Dispatcher [employer] EDMS Pretty Thompson RN RN aj1 KruseJason donaldson jtrinidad Jimy Valdez MD MD rn Pena, Laura, RN RN lp1 Destiny Boyd RN RN tw2 Kam Pelletier Sheri sb2 Corrections: (The following items were deleted from the chart) 16:54 16:50 General: Appears in no apparent distress. uncomfortable, aj1 aj1 16:50 Pain: Complains of pain in right upper quadrant and left upper quadrant aj1 aj1 16:50 Neuro: Level of Consciousness is awake, alert, obeys commands, aj1 aj1 16:50 Cardiovascular: Patient's skin is warm and dry. aj1 aj1 16:50 Respiratory: Airway is patent Respiratory effort is even, unlabored, Respiratory aj1 pattern is regular, symmetrical, aj1 16:50 GI: Abdomen is flat, non-distended, Bowel sounds present X 4 quads. Abd is soft X aj1 4 quads Abdomen is tender to palpation in right upper quadrant and left upper quadrant Reports upper abdominal pain, diarrhea, nausea, Patient currently denies vomiting, aj1 16:50 : No signs and/or symptoms were reported regarding the genitourinary system. aj1aj1 :54 16:50 EENT: No signs and/or symptoms were reported regarding the EENT system. aj1 aj1 : 16:50 Derm: No signs and/or symptoms reported regarding the dermatologic system. Skin aj1 is pink, warm \T\ dry. normal, aj1 16:50 Musculoskeletal: No signs and/or symptoms reported regarding the musculoskeletal aj1 system. Circulation, motion, and sensation intact. aj1 17:22 17:18 GI: Reports that her nausea has improved since administration of Zofran aj1 aj1
[2018-07-26] MEDS ORDERED: metroNIDAZOLE 500 MG TABLET ONE (19:04)
[2018-07-26] MEDS ORDERED: CIPROFLOXACIN HCL 500 MG TAB ONE (19:04)
== END 2018-07-26 19:24 | disposition home or self-care (01) ==
LOC: ER 12:59
DX: K52.9 Noninfective gastroenteritis and colitis, unspecified (principal); K29.70 Gastritis, unspecified, without bleeding; I10 Essential (primary) hypertension; G40.909 Epilepsy, unspecified, not intractable, without status epilepticus; Z88.8 Allergy status to other drugs, medicaments and biological substances
CPT/HCPCS: 36415; 74177; 76705; 80048; 80076; 81003; 81015; 81025; 83690; 85025; 87086; 87088; Q9967